=== PATIENT | male | born 1950 | race Caucasian/White ===

== ENCOUNTER 2022-05-22 14:49 | Emergency (ER) | payer MEDICARE ==
[~2022-05-22] VITALS: Ht 177.8 cm; Wt 149.1 kg
[~2022-05-22 14:49] MED LIST: ASPI81TA53 PO; ATOR20TA66 PO; CHOL500050 PO; DULA0.75 SQ; FLO0.4C PO; FURO-150 PO; HYDR-3972 PO; LOP12.5T PO; PIOG15TA8 PO; POTA-207 PO; SITA100T11 PO
[2022-05-22 14:51] VITALS: BP 106/61
== END 2022-05-22 17:47 | disposition left against medical advice (07) ==
LOC: ER 14:49
DX: R06.02 Shortness of breath (principal); R05.9 Cough, unspecified; R60.9 Edema, unspecified; Z53.21 Procedure and treatment not carried out due to patient leaving prior to being seen by health care provider
CPT/HCPCS: 99281